=== PATIENT | male | born 1975 | race Caucasian/White ===

== ENCOUNTER 2020-07-20 17:29 | Emergency (ER) | payer MEDICAID, SELFPAY ==
[~2020-07-20] VITALS: Ht 165.1 cm; Wt 72.6 kg
[2020-07-20 17:32] VITALS: Ht 165.1 cm; Wt 72.6 kg
[2020-07-20 18:10] VITALS: BP 156/84
== END 2020-07-20 18:10 | disposition home or self-care (01) ==
LOC: ED 17:29
DX: B34.9 Viral infection, unspecified (principal); Z20.828 Contact with and (suspected) exposure to other viral communicable diseases
CPT/HCPCS: U0003